=== PATIENT | female | born 1970 | race Caucasian/White ===

== ENCOUNTER 2017-04-22 22:51 | Emergency (ER) | payer MEDICAID, OTHER ==
[~2017-04-22] VITALS: Ht 170.2 cm; Wt 70.9 kg
[~2017-04-22 22:51] MED LIST: ALBU8.5H5 INH; ALPR0.25 PO; PARO10TA56 PO; QUET100T4 PO; QUET25TA5 PO
[2017-04-22 23:04] VITALS: BP 142/80
[2017-04-22 23:46] LABS: HEMATOCRIT 44.3 % (34.6-47.8); HEMOGLOBIN 14.5 g/dL (11.7-16.4); WHITE BLOOD COUNT 7.1 x10^3/uL (3.4-10)
[2017-04-22 23:57] LABS: ASPARTATE AMINO TRANSFERASE 31 U/L (15-37); BLOOD UREA NITROGEN 16 mg/dL (7-18)
[2017-04-23 00:03] LABS: ACETAMINOPHEN < 2 mcg/mL (10-30); IS PT STATUS REG ER OR PRE ER? YES
[2017-04-23 00:21] LABS: DAU SCREEN DISCLAIMER
== END 2017-04-23 02:11 | disposition home or self-care (01) ==
LOC: ED 23:59
DX: R53.1 Weakness (principal); Z87.891 Personal history of nicotine dependence
CPT/HCPCS: 36415; 71010; 80053; 80307; 80329; 84484; 85025; 93005; 99285; G0480